=== PATIENT | female | born 1985 | race Caucasian/White ===

== ENCOUNTER → 2019-06-02 | Outpatient (CLI) | payer OTHER ==
--- NOTE | 2019-06-02 17:01 | REP ---
Obstetric ultrasound for anatomy: There is a single intrauterine gestation in a vertex presentation. There is movement and cardiac activity. The heart rate is 149 beats per minute. The placenta is posterior without previa or abruptio. The placenta is grade zero. The amniotic fluid volume subjectively is normal. The cervix measures through 0.5 cm length. Gestational age by today's ultrasound is 19 weeks 5 days/JENA 10/22/2019. Gestational age by LMP is 19 weeks 5 days/JENA 10/22/2019. weight is 288 grams/0 pounds, 10 ounces. This is the 39th percentile for 19 weeks 5 days. The following anatomic structures are identified and are unremarkable: Cranium, choroid plexus, cavum septum pellucidum, cerebellum, stomach, cord insertion, three-vessel cord, kidneys, bladder, spine and upper lower extremities. Suboptimally demonstrated because of position are the facial features, lungs, four-chamber heart, cardiac right and left ventricular outflow tracts and diaphragm. A followup study dedicated to these structures might be considered. Electronically Signed by Farhan Kirk MD 06/02/2019 04:53 P
== END ==
LOC: M RAD 10:10
PROVIDERS: ATTEND Specialist
DX: Z34.82 Encounter for supervision of other normal pregnancy, second trimester (principal)

== ENCOUNTER → 2019-06-09 | Outpatient (CLI) | payer OTHER | LOC: M SMT 13:12 | PROVIDERS: ATTEND Specialist | DX: Z82.69 Family history of other diseases of the musculoskeletal system and connective tissue (principal) ==

== ENCOUNTER → 2019-06-27 | Outpatient (CLI) | payer OTHER ==
--- NOTE | 2019-06-27 17:51 | REP ---
Clinical: Anatomical evaluation. Comparison: 06/02/2019 . Findings: Examination demonstrates a single live intrauterine in the cephalic presentation. motion is identified by technologist. Placenta is noted posterior and grade zero without evidence for placenta previa or abruption. Amniotic fluid volume is normal. Cervix measures 3.2 cm in length and appears closed. No evidence for nuchal cord. Gestational age by LMP 23 weeks 2 days with JENA 10/22/2019 . Gestational age by current measurements 23 weeks 3 days with JENA 10/21/2019 . FHR equals 155 beats per minute. Estimated weight 564 grams ( 39 percentile). Anatomical assessment demonstrates normal structures including facial features, lungs, four-chamber heart/ventricular outflow tracts, diaphragm. Impression: Single live intrauterine in cephalic presentation demonstrating appropriate interval growth. In conjunction with prior examination anatomical assessment is complete and normal. No gross abnormalities are identified. Electronically Signed by Tong Conway MD 06/27/2019 05:44 P
== END ==
LOC: M RAD 12:59
PROVIDERS: ATTEND Advanced Practice Midwife
DX: Z34.02 Encounter for supervision of normal first pregnancy, second trimester (principal); Z36.89 Encounter for other specified antenatal screening; Z3A.23 23 weeks gestation of pregnancy

== ENCOUNTER → 2019-07-19 | Outpatient (CLI) | payer OTHER ==
[2019-07-19 14:31] LABS: HEMATOCRIT 36.8 % (36.0-47.0); HEMOGLOBIN 11.8 g/dl (12.0-15.5); MEAN CORPUSCULAR HEMOGLOBIN 33.6 pg (27.0-33.0); MEAN CORPUSCULAR HGB CONC 32.1 g/dl (32.0-36.5); MEAN CORPUSCULAR VOLUME 104.8 fl (80.0-96.0); PLATELET COUNT, AUTOMATED 161 10^3/uL (150-450); RED BLOOD COUNT 3.51 10^6/uL (4.00-5.40)
== END ==
LOC: M SMT 08:05
PROVIDERS: ATTEND Advanced Practice Midwife
DX: Z34.02 Encounter for supervision of normal first pregnancy, second trimester (principal); Z3A.00 Weeks of gestation of pregnancy not specified

== ENCOUNTER → 2019-09-20 | Outpatient (REF) | payer OTHER | LOC: M SFHCWAGY 13:18 | PROVIDERS: ATTEND Specialist | DX: Z36.85 Encounter for antenatal screening for Streptococcus B (principal) ==

== ENCOUNTER 2019-10-08 13:53 | Inpatient (IN) | payer OTHER ==
[~2019-10-08] VITALS: Ht 162.6 cm; Wt 63.7 kg
[2019-10-08] MEDS ORDERED: PENICILLIN G POTASSIUM IV 5 MU in D5W MINI-BAG PLUS 100 ML IV STA (14:38)
[2019-10-08] MEDS ORDERED: PRENTAB9 PO (15:00)
[2019-10-08] MEDS ORDERED: VALA500T5 PO (15:00)
[2019-10-08 15:18] LABS: HEMATOCRIT 40.1 % (36.0-47.0); HEMOGLOBIN 13.4 g/dl (12.0-15.5); MEAN CORPUSCULAR HEMOGLOBIN 32.8 pg (27.0-33.0); MEAN CORPUSCULAR HGB CONC 33.4 g/dl (32.0-36.5); MEAN CORPUSCULAR VOLUME 98.3 fl (80.0-96.0); PLATELET COUNT, AUTOMATED 126 10^3/uL (150-450); RED BLOOD COUNT 4.08 10^6/uL (4.00-5.40); WHITE BLOOD COUNT 8.9 10^3/uL (4.0-10.0)
--- NOTE | 2019-10-08 16:47 | HPE ---
DATE OF ADMISSION: 10/08/2019 34-year-old, 1, para 0 female at 38 and 0/7 weeks gestational by 7-week ultrasound, estimated date of confinement (EDC) of 10/22/2019, presents with loss of fluid from vagina at 10:00 a.m. on the day of admission. She continued to leak fluid. Contractions increased spontaneously in intensity. She had a small amount of vaginal bleeding. COURSE: The patient initiated care in [place] and transferred to [facility] [place]Note 2] part way through the . She had no complications. MEDICAL HISTORY: 1. Resection of pelvic schwannoma. ALLERGIES: None. SURGICAL HISTORY: 1. Resection of pelvic schwannoma in 2006, 2016. SOCIAL HISTORY: The patient is . Her is a physician at [employer], they live in [place]. She denies cigarettes, alcohol or drug use. FAMILY HISTORY: Noncontributory. PHYSICAL EXAMINATION: VITAL SIGNS: Blood pressure 134/74, pulse 84, afebrile. Appears mildly uncomfortable. HEAD/NECK EXAM: Normal. LUNGS: Clear. HEART: Regular rate and rhythm. ABDOMEN: Nontender, gravid. heart tones category 1. Contractions every 2 to 3 minutes. Moderate. Sterile vaginal examination: Grossly ruptured of clear fluid, 4 to 5 cm, 100%, -1, mid position, soft, vertex. EXTREMITIES: Nontender. LABORATORIES: Blood type A positive, Group B streptococcus (GBS) positive. ASSESSMENT: 1. 34-year-old, 1 at 38 and 0/7 weeks gestation, presents with ruptured membranes and in active labor. PLAN: The patient is admitted on 10/08/2019. Penicillin for Group B streptococcus (GBS) prophylaxis.
[2019-10-08] MEDS ORDERED: PENICILLIN G POTASSIUM IV 2.5 MU in IV 1 EA IV SCH (19:00)
[2019-10-08 19:11] VITALS: BP 123/67
[2019-10-08] MEDS ORDERED: ACETAMINOPHEN TAB 650MG DOSE (2X325MG) PO PRN (19:15)
[2019-10-08] MEDS ORDERED: METHYLERGONOVINE MALEATE 0.2 MG TAB PO PRN (19:15)
[2019-10-08] MEDS ORDERED: DIBUCAINE 1% OINTMENT 30GM TOP PRN (19:15)
[2019-10-08] MEDS ORDERED: IBUPROFEN 800 MG TAB PO PRN (19:15)
[2019-10-08] MEDS ORDERED: ONDANSETRON 4MG/2ML VIAL (J2405) IV PRN (19:15)
[2019-10-08] MEDS ORDERED: ACETAMINOPHEN 500 MG TAB PO PRN (19:15)
[2019-10-08] MEDS ORDERED: IBUPROFEN 600 MG TAB PO PRN (19:15)
[2019-10-08] MEDS ORDERED: DOCUSATE SODIUM 100 MG CAP PO PRN (19:15)
[2019-10-08 19:25] VITALS: BP 115/68
[2019-10-08 19:47] VITALS: BP 117/64
[2019-10-08] MEDS ORDERED: RHOGAM 300 MCG (1500 IU) INJ (J2790) IM SCH (20:00)
[2019-10-08] MEDS ORDERED: MEASLES,MUMPS,RUBELLA VACCINE INJ (MMR-II) (90707) SC SCH (20:00)
[2019-10-08 21:20] VITALS: BP 114/67
[2019-10-09 05:34] VITALS: BP 128/76
[2019-10-09] MEDS: PRENATAL VITAMINS CHEWABLE TABLET PO SCH (09:00)
--- NOTE | 2019-10-09 15:07 | DN ---
DATE: 10/08/2019 PREDELIVERY DIAGNOSIS: 38 weeks active labor. POSTDELIVERY DIAGNOSIS: Delivered. PROCEDURE: Spontaneous vaginal delivery. SOCIAL SERVICE LIAISON: Dr. Thomas Collins. ANESTHESIA: None. ESTIMATED BLOOD LOSS: 300 mL. FINDINGS: A 6 pound 7 ounce female with scores of 9 and 9. DELIVERY SUMMARY: After approximately 30 minute second stage, patient had spontaneous delivery of a 6 pound 7 ounce female with scores of 9 and 9 with no delivery anesthesia. There was no nuchal cord. The shoulders delivered with ease. The infant was handed to the mother and cried immediately. The cord was doubly clamped and cut after about five minutes. The placenta delivered spontaneously and appeared to be intact. There were no vaginal lacerations present. Sponge counts were correct.
[2019-10-09 17:54] VITALS: BP 109/53
[2019-10-10 05:52] VITALS: BP 114/65
[2019-10-10] MEDS ORDERED: ACET-683 PO (06:26)
[2019-10-10] MEDS ORDERED: IBUP80TA PO (06:26)
[2019-10-10] MEDS: PRENATAL VITAMINS CHEWABLE TABLET PO SCH (09:46)
--- NOTE | 2019-10-13 18:03 | DSES ---
DATE OF ADMISSION: 10/08/2019 DATE OF DISCHARGE: 10/10/2019 HISTORY: A 34-year-old (G) 1, para (P) 0 female at 38-0/7 weeks gestation who presents with leakage of fluid from vagina at 10:00 a.m. on the day of admission. Upon presentation to the hospital, she was found to be in active labor with ruptured membranes. HOSPITAL COURSE: The patient was admitted on 10/08/2019. She made adequate progress in labor with no need for augmentation of any kind. On 10/08/2019, she had spontaneous delivery of a 6-pound, 7 ounce female . She had no complications. Her course was unremarkable. She had adequate return of bladder and bowel function. She was deemed stable for discharge on day number two. ADMISSION DIAGNOSIS: , term labor. DISCHARGE DIAGNOSIS: Delivered. PROCEDURE: Spontaneous vaginal delivery. DISPOSITION: The patient will followup with Dr. Collins in six weeks. Instructions were reviewed.
== END 2019-10-10 11:15 | disposition home or self-care (01) | DRG 807 ==
LOC: M LDO 13:53 → M LDI 14:28 → M OBS 20:45
PROVIDERS: ADMIT Specialist; ATTEND Specialist
PROC: 10E0XZZ Delivery of Products of Conception, External Approach (ICD-10-PCS; principal; 2019-10-08)
DX: O99.824 Streptococcus B carrier state complicating childbirth (principal); Z37.0 Single live birth; Z3A.38 38 weeks gestation of pregnancy

== ENCOUNTER → 2019-12-21 | Outpatient (REF) | payer OTHER ==
[~2019-12-21] MED LIST: ACET-683 PO; IBUP80TA PO; PRENTAB9 PO; VALA500T5 PO
== END ==
LOC: M LAB REF 18:12
PROVIDERS: ATTEND Dermatology
DX: D22.62 Melanocytic nevi of left upper limb, including shoulder (principal); D22.5 Melanocytic nevi of trunk; L81.9 Disorder of pigmentation, unspecified

== ENCOUNTER → 2020-02-28 | Outpatient (REF) | payer OTHER | LOC: M SFHCWAGY 17:29 | PROVIDERS: ATTEND Specialist | DX: Z12.4 Encounter for screening for malignant neoplasm of cervix (principal); R87.610 Atypical squamous cells of undetermined significance on cytologic smear of cervix (ASC-US) | CPT/HCPCS: 87624; G0123 ==

== ENCOUNTER → 2020-12-03 | Outpatient (REF) | payer OTHER ==
[2020-12-03 19:00] LABS: HEMATOCRIT 37.1 % (36.0-47.0); HEMOGLOBIN 12.9 g/dl (12.0-15.5); MEAN CORPUSCULAR HEMOGLOBIN 33.7 pg (27.0-33.0); MEAN CORPUSCULAR HGB CONC 34.8 g/dl (32.0-36.5); MEAN CORPUSCULAR VOLUME 96.9 fl (80.0-96.0); PLATELET COUNT, AUTOMATED 184 10^3/uL (150-450); RED BLOOD COUNT 3.83 10^6/uL (4.00-5.40); WHITE BLOOD COUNT 8.6 10^3/uL (4.0-10.0)
[2020-12-03 19:44] LABS: HEPATITIS C VIRUS ABY INDEX < 0.0 INDEX (<0.8); HIV 1&2 SCREEN CENTAUR NEGATIVE (NEGATIVE)
[2020-12-03 20:15] LABS: CHLAMYDIA DNA AMPLIFICATION NEGATIVE (NEGATIVE); GC DNA AMPLIFICATION NEGATIVE (NEGATIVE)
== END ==
LOC: M PLALAB 14:16
PROVIDERS: ATTEND Specialist
DX: Z36.89 Encounter for other specified antenatal screening (principal); Z34.91 Encounter for supervision of normal pregnancy, unspecified, first trimester

== ENCOUNTER → 2020-12-13 | Outpatient (CLI) | payer OTHER | LOC: M PLALAB 08:56 | PROVIDERS: ATTEND Specialist | DX: Z34.81 Encounter for supervision of other normal pregnancy, first trimester (principal) ==

== ENCOUNTER → 2021-02-11 | Outpatient (CLI) | payer OTHER ==
--- NOTE | 2021-02-11 22:50 | REP ---
INDICATION: ANATOMY COMPARISON: None. TECHNIQUE: Transabdominal obstetrical ultrasound with color Doppler evaluation. FINDINGS: Examination demonstrates a single live intrauterine in variable presentation. motion is identified by technologist. Placenta is noted posterior and grade 1 without evidence for placenta previa or abruption. Amniotic fluid volume is normal. Cervix measures 4.6 cm in length and appears closed.. Selected gestational age: 18 weeks 5 days with JENA 07/10/2021. Gestational age by current measurements 17 weeks 6 days with JENA 07/16/2021. FHR equals 143 beats per minute. Estimated weight 205 grams (less than 3rdpercentile). Anatomical assessment demonstrates normal structures including cranium, choroid plexus, cavum, cerebellum/posterior fossa, facial features, lungs, four-chamber heart/ventricular outflow tracts, diaphragm, stomach, cord insertion/three-vessel cord, kidneys/bladder, spine, and extremities. IMPRESSION: Single live intrauterine in variable presentation. Anatomical assessment is complete and normal. Estimated weight less than 3rd percentile. <Electronically signed by Tong Conway > 02/11/21 2143
== END ==
LOC: M WHC 10:59
PROVIDERS: ATTEND Advanced Practice Midwife
DX: O09.512 Supervision of elderly primigravida, second trimester (principal); Z3A.18 18 weeks gestation of pregnancy

== ENCOUNTER → 2021-02-27 | Outpatient (CLI) | payer OTHER ==
--- NOTE | 2021-02-27 14:19 | REP ---
INDICATION: IUGR,GROWTH. COMPARISON: None. TECHNIQUE: Transabdominal scanning to assess growth FINDINGS: Multiple ultrasonographic images of the gravid uterus shows a single living intrauterine gestation in the breech presentation. Doppler interrogation of the heart shows a heart rate of 147 beats per minute. The placenta is posterior not low lying. The cervix measures 3.3 cm in length and is closed. The subjective amniotic fluid volume is within normal limits. BPD: 4.7 cm 20 weeks 2 days HC: 17.6 cm 20 weeks 1 day AC: 15.5 cm 20 weeks 5 days FL: 3.4 cm 20 weeks 5 days The estimated weight is 367 g which is at the 27th percentile for a 21 week 0 day gestational age. IMPRESSION: Single living intrauterine gestation as described above with an estimated gestational age of 20 weeks 4 days via composite criteria and an estimated date of delivery of 07/13/2021 by today's exam. <Electronically signed by Yared Lockwood > 02/27/21 [id number]
== END ==
LOC: M WHC 13:37
PROVIDERS: ATTEND Advanced Practice Midwife
DX: O36.5920 Maternal care for other known or suspected poor fetal growth, second trimester, not applicable or unspecified (principal); O32.1XX0 Maternal care for breech presentation, not applicable or unspecified; Z3A.20 20 weeks gestation of pregnancy

== ENCOUNTER → 2021-04-30 | Outpatient (CLI) | payer OTHER ==
[2021-04-30 13:32] LABS: HEMATOCRIT 35.9 % (36.0-47.0); HEMOGLOBIN 12.3 g/dl (12.0-15.5); MEAN CORPUSCULAR HEMOGLOBIN 33.9 pg (27.0-33.0); MEAN CORPUSCULAR HGB CONC 34.3 g/dl (32.0-36.5); MEAN CORPUSCULAR VOLUME 98.9 fl (80.0-96.0); PLATELET COUNT, AUTOMATED 162 10^3/uL (150-450); RED BLOOD COUNT 3.63 10^6/uL (4.00-5.40); WHITE BLOOD COUNT 10.3 10^3/uL (4.0-10.0)
== END ==
LOC: M PLALAB 08:34
PROVIDERS: ATTEND Specialist
DX: Z34.82 Encounter for supervision of other normal pregnancy, second trimester (principal)
CPT/HCPCS: 36415; 82950; 85027; 86850; 86900; 86901; G0463

== ENCOUNTER → 2021-05-14 | Outpatient (CLI) | payer OTHER | LOC: M WHC 09:50 | PROVIDERS: ATTEND Advanced Practice Midwife | DX: O26.849 Uterine size-date discrepancy, unspecified trimester (principal); Z53.9 Procedure and treatment not carried out, unspecified reason ==

== ENCOUNTER → 2021-05-21 | Outpatient (CLI) | payer OTHER ==
--- NOTE | 2021-05-22 05:52 | REP ---
INDICATION: IUGR, GROWTH COMPARISON: 02/27/2021 TECHNIQUE: Transabdominal obstetrical ultrasound with color Doppler evaluation. FINDINGS: Examination demonstrates a single live intrauterine in cephalic presentation. motion is identified by technologist. Placenta is noted posterior and grade 2 without evidence for placenta previa or abruption. Amniotic fluid volume is normal. Selected gestational age: 32 weeks 6 days with JENA 07/10/2021. Gestational age by current measurements 32 weeks 1 day with JENA 07/15/2021. FHR equals 136 beats per minute. MACHELLE: 15.8 cm Umbilical artery SD ratio: 3.49 (1.80-3.78) Estimated weight 1843 grams (15thpercentile). IMPRESSION: Single live intrauterine in cephalic presentation demonstrating appropriate estimated weight and amniotic fluid index <Electronically signed by Tong Conway > 05/22/21 0549
== END ==
LOC: M WHC 13:28
PROVIDERS: ATTEND Advanced Practice Midwife
DX: O36.5930 Maternal care for other known or suspected poor fetal growth, third trimester, not applicable or unspecified (principal); Z3A.32 32 weeks gestation of pregnancy

== ENCOUNTER → 2021-06-12 | Outpatient (REF) | payer OTHER | LOC: M SFHCWAGY 13:10 | PROVIDERS: ATTEND Obstetrics & Gynecology | DX: Z34.03 Encounter for supervision of normal first pregnancy, third trimester (principal) ==

== ENCOUNTER → 2021-06-18 | Outpatient (CLI) | payer OTHER ==
--- NOTE | 2021-06-18 17:47 | REP ---
INDICATION: GROWTH IUGR COMPARISON: 05/21/2021 TECHNIQUE: Transabdominal obstetrical ultrasound with color Doppler evaluation. FINDINGS: Examination demonstrates a single live intrauterine in cephalic presentation. motion is identified by technologist. Placenta is noted posterior and grade 2 without evidence for placenta previa or abruption. Amniotic fluid volume is normal. Cervix appears closed. Selected gestational age: 36 weeks 6 days with JENA 07/10/2021. Gestational age by current measurements 35 weeks 4 days with JENA 07/19/2021. FHR equals 147 beats per minute. BPD: 8.3 cm at 33 weeks 4 days HC: 31.9 cm at 35 weeks 6 days AC: 32.2 cm at 36 weeks 1 day FL: 7.1 cm at 36 weeks 4 days HL: 6.2 cm at 36 weeks 1 day HC/AC: 0.99 Estimated weight 2793 grams (30thpercentile). MACHELLE: 11.9 cm Umbilical artery SD ratio: 2.62 IMPRESSION: Single live advanced gestation in cephalic presentation demonstrating appropriate interval growth. <Electronically signed by Tong Conway > 06/18/21 [id number]
== END ==
LOC: M WHC 15:18
PROVIDERS: ATTEND Advanced Practice Midwife
DX: O36.5930 Maternal care for other known or suspected poor fetal growth, third trimester, not applicable or unspecified (principal); Z3A.36 36 weeks gestation of pregnancy

== ENCOUNTER 2021-07-01 22:23 | Inpatient (IN) | payer OTHER ==
[~2021-07-01] VITALS: Ht 162.6 cm; Wt 65.0 kg
[2021-07-01] MEDS ORDERED: OXYTOCIN INJ 10 UNITS/ML VIAL (J2590) As Ordered ONE (22:26)
--- OUTSIDE RECORDS SUMMARY | 2021-07-01 22:26 | CCD ---
Author Author [facility] Organization [facility] Address Unknown Phone Unavailable Care Team Providers Care Channel Sales Director Name Role Phone Aime Herring Unavailable PROBLEMS Type Condition ICD9-CM Code [id number] Code Onset Dates Condition S tatus W/U Status Risk SNOMED Code Notes Problem Melanocytic nevi of left ear D22.22 Active confirme d 164565751 Problem Multiple benign nevi of neck D22.4 Active confirme d 07707165 Problem Melanocytic nevi of right ear D22.21 Active confirm ed 732375725 Problem Melanocytic nevi of face D22.30 Active confirmed 649139166 Problem Scar L90.5 Active confirmed 887349864 Problem Melanocytic nevi of trunk D22.5 Active confirmed 617583473 Problem History of nonmelanoma skin cancer Z85.828 Activ e confirmed 654693964 Problem Supervision of other normal Z34.80 Ac tive confirm 846346745 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 76545 01 Problem Melanocytic nevi of left lower limb, including hip D22.72 Active confirmed 991327410842873 Problem Melanocytic nevi of right lower limb, including hip D22.71 Active confirmed 608208331 Problem Melanocytic nevi of left upper limb, including shoulder D22.62 Active confirmed [id number] Problem Melanocytic nevi of right upper limb, including shoulder D22.61 Active confirmed [id number] ALLERGIES No Known Allergies ENCOUNTERS from 1984 to 2021-05-01 Encounter Location Date Provider Diagnosis [facility] [address] [place] [address] [place] [address] Apr, Aime Nima Advanced maternal ag e in multigravida O09.529 and 29 weeks gestation of Z3A.29 IMMUNIZATIONS Vaccine Route Administration Date Status TDAP 0.5mL (Boostrix) IM Intramuscular Sep 09, 2019 Administe red SOCIAL HISTORY Tobacco Use: Social History Observation Description Date Details (start date - stop date) Never Smoker Sex Assigned At : Social History Observation Description Sex Assigned At Unknown Education: Question Answer Notes Level of Education: Professional Schools/Masters/PhD Language: Question Answer Notes Languages spoken: Azeri Domestic Violence: Question Answer Notes Status: No history of abuse Tobacco Use: Question Answer Notes Are you a: never smoker REASON FOR REFERRAL No Information VITAL SIGNS Weight 139 lbs Apr, Weight-kg 63.05 kg Apr, Height 64 in Apr, BMI 23.859 kg/m2 Apr, Blood pressure systolic 102 mm Hg Apr, Blood pressure diastolic 60 mm Hg Apr, MEDICATIONS Medication SIG (Take, Route, Frequency, Duration) Notes Start Da te End Date Status Magnesium 300 MG 1 capsule with a meal Orally Once a day for 30 day(s ) Active Vitamin 27-0.8 MG 1 tablet Orally Once a day Active Valtrex 500 MG 1 tablet Orally Once a day Active PROCEDURES No Information RESULTS No Results REASON FOR VISIT 4WK PN MEDICAL (GENERAL) HISTORY Type Description Date Medical History History of Schwannoma tumor in pelvic ar ea Surgical History Tumor Removed 2006, 2016 Hospitalization History tumor removed x 2 Hospitalization History childbirth Goals Section No Information Health Concerns No Information MEDICAL EQUIPMENT No Information MENTAL STATUS No Information FUNCTIONAL STATUS No Information ASSESSMENTS Encounter Date Diagnosis Assessment Notes Treatment Notes Treatm ent Clinical Notes Apr, Advanced maternal age in multigravida (ICD-10 - O09.529) Apr, 29 weeks gestation of (ICD-10 - Z3A.29 ) PLAN OF TREATMENT Next Appt Details 2 Weeks Reason: Provider Name:Aime Herring, 2021-05-14 0 9:00:00 AM, [address] [place] [address], , [place], [address], Provider Name:Xochilt Garrett, 2021-05-09 2 09:00:00 AM, [address] [place] [address], , [place], [address], Provider Name:Rachel Summers, 2021-06-12 0 9:00:00 AM, [address] [facility], , [place], [address], Insurance Providers Payer Name Payer Address Payer Phone Insured Name Patient Relati onship to Insured Coverage Start Date Coverage End Date [facility] [address] [place] [id number] SAMIA HERNANDEZ 'S ADMINSTRATION [place] [address] [address] [facility] [address] [address]
--- OUTSIDE RECORDS SUMMARY | 2021-07-01 22:26 | CCD ---
Author Author [facility] [facility] Organization [facility] Address Unknown Phone Unavailable Care Team Providers Care Administrative Assistant Coordinator Name Role Phone NimaAime Unavailable PROBLEMS Type Condition ICD9-CM Code IQV80-IP Code Onset Dates Condition S tatus W/U Status Risk SNOMED Code Notes Problem Melanocytic nevi of left ear D22.22 Active confirme d 551986202 Problem Multiple benign nevi of neck D22.4 Active confirme d 98020216 Problem Melanocytic nevi of right ear D22.21 Active confirm ed 003624119 Problem Melanocytic nevi of face D22.30 Active confirmed 661002113 Problem Scar L90.5 Active confirmed 966472865 Problem Melanocytic nevi of trunk D22.5 Active confirmed 407810703 Problem History of nonmelanoma skin cancer Z85.828 Activ e confirmed 291057517 Problem Supervision of other normal Z34.80 Ac tive confirm 603757334 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 64647 01 Problem Melanocytic nevi of left lower limb, including hip D22.72 Active confirmed 850191403394713 Problem Melanocytic nevi of right lower limb, including hip D22.71 Active confirmed 440066012 Problem Melanocytic nevi of left upper limb, including shoulder D22.62 Active confirmed 006258368310485 Problem Melanocytic nevi of right upper limb, including shoulder D22.61 Active confirmed 174998255 ALLERGIES No Known Allergies ENCOUNTERS from 1984 to 2021-05-15 Encounter Location Date Provider Diagnosis [facility] [phone] [place] [address] May, Aime Herring Uterine size-date di screpancy in third trimester O26.843 ; Elderly multigravida in third trimester O09.523 and 31 weeks gestation of Z3A.31 IMMUNIZATIONS Vaccine Route Administration Date Status TDAP 0.5mL (Boostrix) IM Intramuscular Sep 09, 2019 Administe mae SOCIAL HISTORY Tobacco Use: Social History Observation Description Date Details (start date - stop date) Never Smoker Sex Assigned At : Social History Observation Description Sex Assigned At Unknown Education: Question Answer Notes Level of Education: Professional Schools/Masters/PhD Language: Question Answer Notes Languages spoken: Citizen Of [place] Domestic Violence: Question Answer Notes Status: No history of abuse Tobacco Use: Question Answer Notes Are you a: never smoker REASON FOR REFERRAL No Information VITAL SIGNS Weight 139.4 lbs May, Weight-kg 63.23 kg May, Height 64 in May, BMI 23.928 kg/m2 May, Blood pressure systolic 108 mm Hg May, Blood pressure diastolic 66 mm Hg May, MEDICATIONS Medication SIG (Take, Route, Frequency, Duration) Notes Start Da te End Date Status Magnesium 300 MG 1 capsule with a meal Orally Once a day for 30 day(s ) Active Valtrex 500 MG 1 tablet Orally Once a day Active Vitamin 27-0.8 MG 1 tablet Orally Once a day Active PROCEDURES No Information RESULTS No Results REASON FOR VISIT 2 wk pn MEDICAL (GENERAL) HISTORY Type Description Date Medical History History of Schwannoma tumor in pelvic ar ea Surgical History Tumor Removed 2006, 2016 Hospitalization History tumor removed x 2 Hospitalization History childbirth Goals Section No Information Health Concerns No Information MEDICAL EQUIPMENT No Information MENTAL STATUS No Information FUNCTIONAL STATUS No Information ASSESSMENTS Encounter Date Diagnosis Assessment Notes Treatment Notes Treatm ent Clinical Notes May, Uterine size-date discrepanc y in third trimester (ICD-10 - O26.843) May, Elderly multigravida in third trimester (ICD-10 - O09.523) May, 31 weeks gestation of (ICD-10 - Z3A.31 ) PLAN OF TREATMENT Treatment Notes Test Name Order Date [facility] OBS FOLLOW UP OR REPEAT 2021-05-14 Next Appt Details 2 Weeks Reason: Provider Name:Xochilt Garrett, 2021-05-09 2 09:00:00 AM, [address] [phone], [place], [address], Provider Name:Rachel Summers, 2021-06-12 0 9:00:00 AM, [address] [facility], , [place], [address], Insurance Providers Payer Name Payer Address Payer Phone Insured Name Patient Relati onship to Insured Coverage Start Date Coverage End Date [facility] [address] [facility] [address] SAMIA HERNA[facility]DEZ 'S ADMINSTRATION ([place] [address] [address] [facility] [address] [address] self
--- OUTSIDE RECORDS SUMMARY | 2021-07-01 22:26 | CCD ---
Author Author [facility] [facility] Organization [facility] [facility] Address Unknown Phone Unavailable Care Team Providers Care Electric Bath Attendant Name Role Phone Aime Herring Unavailable PROBLEMS Type Condition ICD9-CM Code [id number] Code Onset Dates Condition S tatus W/U Status Risk SNOMED Code Notes Problem Melanocytic nevi of left ear D22.22 Active confirme d 500048073 Problem Multiple benign nevi of neck D22.4 Active confirme d 34259177 Problem Melanocytic nevi of right ear D22.21 Active confirm ed 999884172 Problem Melanocytic nevi of face D22.30 Active confirmed 813288271 Problem Scar L90.5 Active confirmed 851887321 Problem Melanocytic nevi of trunk D22.5 Active confirmed 748467866 Problem History of nonmelanoma skin cancer Z85.828 Activ e confirmed 832446773 Problem Supervision of other normal Z34.80 Ac tive confirm 118220683 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 26634 01 Problem Melanocytic nevi of left lower limb, including hip D22.72 Active confirmed 821364799562519 Problem Melanocytic nevi of right lower limb, including hip D22.71 Active confirmed 649708203 Problem Melanocytic nevi of left upper limb, including shoulder D22.62 Active confirmed 131089896464116 Problem Melanocytic nevi of right upper limb, including shoulder D22.61 Active confirmed 149749881 ALLERGIES No Known Allergies ENCOUNTERS from 1984 to 2021-06-21 Encounter Location Date Provider Diagnosis [facility] [address] [place] [address] [place] [address] Jun, Aime Herring Advanced maternal ag e in multigravida O09.529 IMMUNIZATIONS Vaccine Route Administration Date Status TDAP 0.5mL Boostrix IM Intramuscular May 29, 2021 Administere d TDAP 0.5mL (Boostrix) IM Intramuscular Sep 09, 2019 Administe red Influenza 6mo & up Fluzone IM Intramuscular Jun 21, 2021 Admi nistered SOCIAL HISTORY Tobacco Use: Social History Observation Description Date Details (start date - stop date) Never Smoker Sex Assigned At : Social History Observation Description Sex Assigned At Unknown Education: Question Answer Notes Level of Education: Professional Schools/Masters/PhD Language: Question Answer Notes Languages spoken: Malawian Domestic Violence: Question Answer Notes Status: No history of abuse Alcohol Screening: Question Answer Notes Did you have a drink containing alcohol in the past year? No Points 0 Interpretation Negative Tobacco Use: Question Answer Notes Are you a: never smoker REASON FOR REFERRAL No Information VITAL SIGNS Weight 142.0 lbs Jun, Weight-kg 64.41 kg Jun, Height 64 in Jun, BMI 24.374 kg/m2 Jun, Blood pressure systolic 112 mm Hg Jun, Blood pressure diastolic 64 mm Hg Jun, MEDICATIONS Medication SIG (Take, Route, Frequency, Duration) Notes Start Da te End Date Status Vitamin 27-0.8 MG 1 tablet Orally Once a day Active Valtrex 500 MG 1 tablet Orally Once a day Active Valtrex 500 MG 1 tablet Orally BID for 30 days Jun, Active Magnesium 300 MG 1 capsule with a meal Orally Once a day for 30 day(s ) Active PROCEDURES from 1984 to 2021-06-21 Procedure Date Ordered Result Body Site Imm: Fluzone 6mo & older 0.5mL IM Influenza 2021-06-21 N/A RESULTS No Results REASON FOR VISIT 1 WK PN MEDICAL (GENERAL) HISTORY Type Description Date Medical History History of Schwannoma tumor in pelvic ar ea Surgical History Tumor Removed 2006, 2015 Hospitalization History tumor removed x 2 Hospitalization History childbirth Goals Section No Information Health Concerns No Information MEDICAL EQUIPMENT No Information MENTAL STATUS No Information FUNCTIONAL STATUS No Information ASSESSMENTS Encounter Date Diagnosis Assessment Notes Treatment Notes Treatm ent Clinical Notes Jun, Advanced maternal age in multigravida (ICD-10 - O09.529) PLAN OF TREATMENT Medication Medication Name Sig Start Date Stop Date Valtrex 500 MG 1 tablet Orally BID for 30 days Jun, Next Appt Details 1 Week Reason: Provider Name:Thomas Collins, 2021-06-26 02:45:00 PM, [address] [place] [address], , [place], [address], Provider Name:Thomas Collins, 2021-07-03 09:15:00 AM, [address] [place] [address], , [place], [address], Insurance Providers Payer Name Payer Address Payer Phone Insured Name Patient Relati onship to Insured Coverage Start Date Coverage End Date [facility] [address] [place] [id number] SAMIA HERNANDEZ 'S ADMINSTRATION ([place]) [place] [address] [address] [facility] [address] [address] self
--- OUTSIDE RECORDS SUMMARY | 2021-07-01 22:26 | CCD ---
Author Author [facility] Organization [facility] Address Unknown Phone Unavailable Support Name Relationship Address Phone SAMIA HERNANDEZ Next Of Kin [address] [place], [place] [id number] UE Next Of Kin Unknown Unavailable SAMIA HERNANDEZ ECON [address] [place] [address] Unavailable Re-disclosure Warning The records that you are about to access may contain information from federally-assisted alcohol or drug abuse programs. If such information is present, then the following federally mandated warning applies: This information has been disclosed to you from records protected by federal confidentiality rules (42 CFR part 2). The federal rules prohibit you from making any further disclosure of this information unless further disclosure is expressly permitted by the written consent of the person to whom it pertains or as otherwise permitted by 42 CFR part 2. A general authorization for the release of medical or other information is NOT sufficient for this purpose. The Federal rules restrict any use of the information to criminally investigate or prosecute any alcohol or drug abuse patient.The records that you are about to access may contain highly sensitive health information, the redisclosure of which is protected by Article 27-F of the [facility] Public Health law. If you continue you may have access to information: Regarding HIV / AIDS; Provided by facilities licensed or operated by the [facility] Office of Mental Health; or Provided by the [facility] Office for People With Developmental Disabilities. If such information is present, then the following [facility] mandated warning applies: This information has been disclosed to you from confidential records which are protected by state law. State law prohibits you from making any further disclosure of this information without the specific written consent of the person to whom it pertains, or as otherwise permitted by law. Any unauthorized further disclosure in violation of state law may result in a fine or group home sentence or both. A general authorization for the release of medical or other information is NOT sufficient authorization for further disc losure. Encounters Encounter Providers Location Date Indications Data Source(s ) ( ESTOB) enter Est OB [address] [place] [address] 06/21/2021 12:00:00 AM EDT eCW1 ([facility]) ( ESTOB) [facility] [place] [address] [place] [address] 05/29/2021 12:00:00 AM EDT eCW1 ([facility]) (WC ESTOB) [facility] [place] [address] [place] [address] 05/14/2021 12:00:00 AM EDT eCW1 ([facility]) (WC ESTOB) [facility] [address] [place] [address] 04/30/2021 12:00:00 AM EDT eCW1 ([facility]) (WC ESTOB) [facility] [address] [place] [address] 03/28/2021 12:00:00 AM EDT eCW1 ([facility]) Unknown [address] [facility] [address] 02/27/2021 12:00:00 AM EDT eCW1 ([facility]) ( ESTOB) [facility] [address] [place] [address] 02/26/2021 12:00:00 AM EDT eCW1 ([facility]) ( ESTOB) [facility] [address] [place] [address] 01/30/2021 12:00:00 AM EDT eCW1 ([facility]) (WC ESTOB) [facility] [address] [place] [address] 12/28/2020 12:00:00 AM EDT eCW1 ([facility]) [place] [address] [facility] [place] [address] 12/25/2020 12:00:00 AM EDT eCW1 ([facility]) [place] [address] [facility] [place] [address] 12/04/2020 12:00:00 AM EDT eCW1 ([facility]) (WC ESTOB) WCenter Est OB [address] [place] [address] 12/03/2020 12:00:00 AM EDT eCW1 ([facility]) Out[place] [address] [facility] [address] 09/19/2020 12:00:00 AM EST eCW1 ([facility]) Immunizations Vaccine Date Status Description Data Source(s) New in 2011. IIV4 06/21/2021 03:57:00 PM EDT completed eCW1 ([facility]) Tdap 05/29/2021 09:35:00 AM EDT completed e CW1 ([facility]) Tdap 05/29/2021 09:35:00 AM EDT completed e CW1 ([facility]) COVID-19 VACCINE Pfizer 05/14/2021 12:00:00 AM EDT completed [place] Vaccine Series Complete: YESThis Data wa s Submitted to [facility]. COVID-19 VACCINE Pfizer 04/22/2021 12:00:00 AM EDT completed [place] Vaccine Series Complete: NOThis Data was Submitted to [facility]. Medications Medication Brand Name Start Date Product Form Dose Route Admi nistrative Instructions Pharmacy Instructions Status Indications Reaction Description Data Source(s) valacyclovir 500 MG Oral Tablet [Valtrex] Valtrex 500 MG Sneha trex 500 MG 06/21/2021 12:00:00 AM EDT 1.0 {tablet} active Valtrex 500 MG eCW1 ([facility]) Cephalexin 500 MG Oral Capsule Cephalexin 500 MG 12/25/2020 12:00:0 0 AM EDT 1.0 {capsule} active Cephalexin 500 MG eCW1 ([facility]) Cephalexin 500 MG Oral Capsule Cephalexin 500 MG 12/25/2020 12:00:0 0 AM EDT 1.0 {capsule} active Cephalexin 500 MG eCW1 ([facility]) Insurance Providers Payer name Policy type / Coverage type Policy ID Covered republican ID Covered republican's relationship to ag Policy Ag Plan Information [facility] [id number] [facility] [id number] [facility] [id number] [facility] [id number] SP [id number] 74 'S ADMINISTRATION [id number] SP [id number] [facility] [facility] O [id number] S [id number] SELF PAY O UNAVAILABLE [id number] S UNAVAILA BLE 'S ADMINISTRATION [id number] SP [id number] [facility] [id number] Problems, Conditions, and Diagnoses Code Display Name Description Problem Type Effective Dates Data Source(s) Z34.80 care Supervision of other normal [place] marylu 11/28/2020 12:00:00 AM EDT eCW1 ([facility]) D22.61 104787245 Melanocytic nevi of right upper limb, including shoulder Problem 09/19/2020 12:00:00 AM EST eCW1 ([facility]) D22.62 [id number] Melanocytic nevi of left upper l imb, including shoulder Problem 09/19/2020 12:00:00 AM EST eCW1 ([facility]) D22.71 718893727 Melanocytic nevi of right lower limb, inc luding hip Problem 09/19/2020 12:00:00 AM EST eCW1 ([facility]) D22.72 [id number] Melanocytic nevi of left lower l imb, including hip Problem 09/19/2020 12:00:00 AM EST eCW1 ([facility]) D18.01 6997393 Baldwin angioma Problem 09/19/2020 12:00:00 A M EST eCW1 ([facility]) Z85.828 052012731 History of nonmelanoma skin cancer Proble m 09/19/2020 12:00:00 AM EST eCW1 ([facility]) D22.5 412265944 Melanocytic nevi of trunk Problem 09/19/2020 12:00:00 AM EST eCW1 ([facility]) L90.5 346485109 Scar Problem 09/19/2020 12:00:00 AM ES T eCW1 ([facility]) D22.30 382725296 Melanocytic nevi of face Problem 09/19/2020 12:00:00 AM EST eCW1 ([facility]) D22.21 596138445 Melanocytic nevi of right ear Problem 09/19/2020 12:00:00 AM EST eCW1 ([facility]) D22.4 07123842 Multiple benign nevi of neck Problem 021 12:00:00 AM EST eCW1 ([facility]) D22.22 936471882 Melanocytic nevi of left ear Problem 09/19/2020 12:00:00 AM EST eCW1 ([facility]) Surgeries/Procedures Procedure Description Date Indications Data Source(s) INFLUENZA VIRUS VACC SPLIT PRSRV FREE 3 YRS/> IM 06/21 12:00:00 AM EDT eCW1 ([facility]) TDAP VACCINE 7/> YR IM 05/29/2021 12:00:00 AM EDT eCW1 ([facility]) Results ID Date Data Source HBSAG 12/03/2020 12:00:00 AM EDT eCW1 ([facility]) Name Value Range Interpretation Code Description Data Peggy rce(s) Supporting Document(s) NEGATIVE NEGATIVE HBsAg eCW1 ([facility]) ID Date Data Source HEPATITIS C ANTIBODY INDEX 12/03/2020 12:00:00 AM EDT eCW1 ( [facility]) Name Value Range Interpretation Code Description Data Peggy rce(s) Supporting Document(s) < 0.0 <0.8 HEPATITIS C VIRUS CESAR IND EX eCW1 ([facility]) ID Date Data Source RUBELLA IMMUNE STATUS IgG 12/03/2020 12:00:00 AM EDT eCW1 ([facility]) Name Value Range Interpretation Code Description Data Peggy rce(s) Supporting Document(s) IMMUNE IMMUNE RUBELLA IgG QUALITATIVE eCW1 ( [facility]) ID Date Data Source SYPHILIS ANTIBODY (RPR SCREEN) 12/03/2020 12:00:00 AM EDT eC W1 ([facility]) Name Value Range Interpretation Code Description Data Peggy rce(s) Supporting Document(s) NONREACTIVE NONREACTIVE SYPHILIS eCW1 ([facility]) ID Date Data Source [id number] 12/03/2020 12:00:00 AM EDT eCW1 ([facility]) Name Value Range Interpretation Code Description Data Peggy rce(s) Supporting Document(s) HIV 1&2 ANTIBODY SCREEN eCW1 ( [facility]) ID Date Data Source CHLAMYDIA & GC DNA AMPLIFICAT 12/03/2020 12:00:00 AM EDT eCW 1 ([facility]) Name Value Range Interpretation Code Description Data Peggy rce(s) Supporting Document(s) Chlamydia trachomatis rRNA [Presence] in Unspecified specimen by Probe and target amplification method NEGATIVE NEGATIVE CHLAMYDIA DNA AMPLIFICATION eCW1 ([facility]) ID Date Data Source CBC - Complete Blood Count 12/03/2020 12:00:00 AM EDT eCW1 ( [facility]) Name Value Range Interpretation Code Description Data Peggy rce(s) Supporting Document(s) 3.83 4.00-5.40 RED BLOOD COUNT eCW1 ([facility]) 12.9 12.0-15.5 HEMOGLOBIN eCW1 ([facility]) 8.6 4.0-10.0 WHITE BLOOD COUNT eCW1 ([facility]) 33.7 27.0-33.0 MEAN CORPUSCULAR HEMOGLOB IN eCW1 ([facility]) 96.9 80.0-96.0 MEAN CORPUSCULAR VOLUME e CW1 ([facility]) 37.1 36.0-47.0 HEMATOCRIT eCW1 ([facility]) 34.8 32.0-36.5 MEAN CORPUSCULAR HGB CONC eCW1 ([facility]) 11.9 11.5-14.5 RED CELL DISTRIBUTION WID TH eCW1 ([facility]) 184 150-450 PLATELET COUNT, AUTOMATED eCW1 ([facility]) ID Date Data Source Type and Screen Prenatal1 12/03/2020 12:00:00 AM EDT eCW1 ([facility]) Name Value Range Interpretation Code Description Data Peggy rce(s) Supporting Document(s) NEGATIVE AB SCREEN PNP1 GEL (VIS) eCW1 ([facility]) Procedure Social History Code Duration Value Status Description Data Source(s ) Smoking 06/20/2021 12:00:00 AM EDT Never Smoker completed Never S moker eCW1 ([facility]) Smoking 06/11/2021 12:00:00 AM EDT Never Smoker completed Never S moker eCW1 ([facility]) Smoking 05/06/2021 12:00:00 AM EDT Never Smoker completed Never S moker eCW1 ([facility]) Smoking 04/30/2021 12:00:00 AM EDT Never Smoker completed Never S moker eCW1 ([facility]) Smoking 03/28/2021 12:00:00 AM EDT Never Smoker completed Never S moker eCW1 ([facility]) Smoking 02/21/2021 12:00:00 AM EDT Never Smoker completed Never S moker eCW1 ([facility]) Smoking 02/21/2021 12:00:00 AM EDT Never Smoker completed Never S moker eCW1 ([facility]) Smoking 02/21/2021 12:00:00 AM EDT Never Smoker completed Never S moker eCW1 ([facility]) Smoking 01/30/2021 12:00:00 AM EDT Never Smoker completed Never S moker eCW1 ([facility]) Smoking 12/25/2020 12:00:00 AM EDT Never Smoker completed Never S moker eCW1 ([facility]) Smoking 12/25/2020 12:00:00 AM EDT Never Smoker completed Never S moker eCW1 ([facility]) Smoking 12/03/2020 12:00:00 AM EDT Never Smoker completed Never S moker eCW1 ([facility]) Smoking 09/19/2020 12:00:00 AM EST Never Smoker completed Never S moker eCW1 ([facility]) Vital Signs ID Date Data Source UNK Name Value Range Interpretation Code Description Data Source(s) Body weight 142.0 [lb_av] 142.0 [lb_av] eCW1 ([facility]) Body weight 64.41 kg 64.41 kg eCW1 ([facility]) Body height 64 [in_i] 64 [in_i] eCW1 ([facility]) Body mass index (BMI) [Ratio] 24.374 kg/m2 24.3 74 kg/m2 eCW1 ([facility]) Systolic blood pressure 112 mm[Hg] 112 mm[Hg] e CW1 ([facility]) Diastolic blood pressure 64 mm[Hg] 64 mm[Hg] eCW1 ([facility]) Body weight 141 [lb_av] 141 [lb_av] eCW1 ([facility]) Body weight 63.96 kg 63.96 kg eCW1 ([facility]) Body height 64 [in_i] 64 [in_i] eCW1 ([facility]) Body mass index (BMI) [Ratio] 24.2 kg/m2 24.2 k g/m2 W1 ([facility]) Systolic blood pressure 112 mm[Hg] 112 mm[Hg] e CW1 ([facility]) Diastolic blood pressure 60 mm[Hg] 60 mm[Hg] eCW1 ([facility]) Body weight 139.4 [lb_av] 139.4 [lb_av] eCW1 ([facility]) Body weight 63.23 kg 63.23 kg eCW1 ([facility]) Body height 64 [in_i] 64 [in_i] eCW1 ([facility]) Body mass index (BMI) [Ratio] 23.928 kg/m2 23.9 28 kg/m2 W1 ([facility]) Systolic blood pressure 108 mm[Hg] 108 mm[Hg] e CW1 ([facility]) Diastolic blood pressure 66 mm[Hg] 66 mm[Hg] eCW1 ([facility]) Body weight 139 [lb_av] 139 [lb_av] eCW1 ([facility]) Body weight 63.05 kg 63.05 kg eCW1 ([facility]) Body height 64 [in_i] 64 [in_i] eCW1 ([facility]) Body mass index (BMI) [Ratio] 23.859 kg/m2 23.8 59 kg/m2 eCW1 ([facility]) Systolic blood pressure 102 mm[Hg] 102 mm[Hg] e CW1 ([facility]) Diastolic blood pressure 60 mm[Hg] 60 mm[Hg] eCW1 ([facility]) Body weight 136.2 [lb_av] 136.2 [lb_av] eCW1 ([facility]) Body height 64 [in_i] 64 [in_i] eCW1 ([facility]) Body mass index (BMI) [Ratio] 23.379 kg/m2 23.3 79 kg/m2 eCW1 ([facility]) Systolic blood pressure 100 mm[Hg] 100 mm[Hg] e CW1 ([facility]) Diastolic blood pressure 56 mm[Hg] 56 mm[Hg] eCW1 ([facility]) Body weight 134.2 [lb_av] 134.2 [lb_av] eCW1 ([facility]) Body weight 60.87 kg 60.87 kg eCW1 ([facility]) Body height 64 [in_i] 64 [in_i] eCW1 ([facility]) Body mass index (BMI) [Ratio] 23.035 kg/m2 23.0 35 kg/m2 eCW1 ([facility]) Systolic blood pressure 104 mm[Hg] 104 mm[Hg] e CW1 ([facility]) Diastolic blood pressure 60 mm[Hg] 60 mm[Hg] eCW1 ([facility]) Body weight 128 [lb_av] 128 [lb_av] eCW1 ([facility]) Body height 64 [in_i] 64 [in_i] eCW1 ([facility]) Body mass index (BMI) [Ratio] 21.971 kg/m2 21.9 71 kg/m2 eCW1 ([facility]) Systolic blood pressure 100 mm[Hg] 100 mm[Hg] e CW1 ([facility]) Diastolic blood pressure 54 mm[Hg] 54 mm[Hg] eCW1 ([facility]) Body weight 129.0 [lb_av] 129.0 [lb_av] eCW1 ([facility]) Body weight 58.51 kg 58.51 kg eCW1 ([facility]) Body height 64 [in_i] 64 [in_i] eCW1 ([facility]) Body mass index (BMI) [Ratio] 22.143 kg/m2 22.1 43 kg/m2 eCW1 ([facility]) Systolic blood pressure 104 mm[Hg] 104 mm[Hg] e CW1 ([facility]) Diastolic blood pressure 62 mm[Hg] 62 mm[Hg] eCW1 ([facility]) Body height 64 [in_i] 64 [in_i] eCW1 ([facility]) Body weight 127.8 [lb_av] 127.8 [lb_av] eCW1 ([facility]) Body mass index (BMI) [Ratio] 21.937 kg/m2 21.9 37 kg/m2 eCW1 ([facility]) Systolic blood pressure 102 mm[Hg] 102 mm[Hg] e CW1 ([facility]) Diastolic blood pressure 58 mm[Hg] 58 mm[Hg] eCW1 ([facility]) Body weight 123.8 [lb_av] 123.8 [lb_av] eCW1 ([facility]) Body height 64 [in_i] 64 [in_i] eCW1 ([facility]) Body mass index (BMI) [Ratio] 21.25 kg/m2 21.25 kg/m2 eCW1 ([facility]) Systolic blood pressure 106 mm[Hg] 106 mm[Hg] e CW1 ([facility]) Diastolic blood pressure 68 mm[Hg] 68 mm[Hg] eCW1 ([facility]) Patient Treatment Plan of Care Planned Activity Planned Date Details Description Data Source (s) valacyclovir 500 MG Oral Tablet [Valtrex] 06/21/2021 12:00:00 AM ED T eCW1 ([facility]) Cephalexin 500 MG Oral Capsule 12/25/2020 12:00:00 AM EDT eCW1 ([facility])
--- OUTSIDE RECORDS SUMMARY | 2021-07-01 22:26 | CCD ---
Author Author [facility] Organization [facility] Address Unknown Phone Unavailable Care Team Providers Care Corporate Scheduler Name Role Phone Thomas Collins Unavailable PROBLEMS Type Condition ICD9-CM Code [id number] Code Onset Dates Condition S tatus W/U Status Risk SNOMED Code Notes Problem Melanocytic nevi of left ear D22.22 Active confirme d 057537591 Problem Multiple benign nevi of neck D22.4 Active confirme d 54959035 Problem Melanocytic nevi of right ear D22.21 Active confirm ed 071052352 Problem Melanocytic nevi of face D22.30 Active confirmed 254542627 Problem Scar L90.5 Active confirmed 840459753 Problem Melanocytic nevi of trunk D22.5 Active confirmed 402851034 Problem History of nonmelanoma skin cancer Z85.828 Activ e confirmed 118351521 Problem Supervision of other normal Z34.80 Ac tive confirm 225552340 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 68710 01 Problem Melanocytic nevi of left lower limb, including hip D22.72 Active confirmed 721415677023392 Problem Melanocytic nevi of right lower limb, including hip D22.71 Active confirmed 652101241 Problem Melanocytic nevi of left upper limb, including shoulder D22.62 Active confirmed 110310799041454 Problem Melanocytic nevi of right upper limb, including shoulder D22.61 Active confirmed 142187133 ALLERGIES No Known Allergies ENCOUNTERS from 1984 to 2021-04-10 Encounter Location Date Provider Diagnosis [facility] [facility] [phone] [place] [address] Mar, Thomas Collins Encounter for superv ision of normal in multigravida in second trimester Z34.82 and 25 weeks gestation of Z3A.25 IMMUNIZATIONS Vaccine Route Administration Date Status TDAP 0.5mL (Boostrix) IM Intramuscular Sep 09, 2019 Administe red SOCIAL HISTORY Tobacco Use: Social History Observation Description Date Details (start date - stop date) Never Smoker Sex Assigned At : Social History Observation Description Sex Assigned At Unknown Education: Question Answer Notes Level of Education: Professional Schools/Masters/PhD Language: Question Answer Notes Languages spoken: Jamaican Domestic Violence: Question Answer Notes Status: No history of abuse Alcohol Screening: Question Answer Notes Did you have a drink containing alcohol in the past year? No Points 0 Interpretation Negative Tobacco Use: Question Answer Notes Are you a: never smoker REASON FOR REFERRAL No Information VITAL SIGNS Weight 136.2 lbs Mar, Height 64 in Mar, BMI 23.379 kg/m2 Mar, Blood pressure systolic 100 mm Hg Mar, Blood pressure diastolic 56 mm Hg Mar, MEDICATIONS Medication SIG (Take, Route, Frequency, Duration) [...] Notes Treatment Notes Treatm ent Clinical Notes Mar, Encounter for supervision of normal in multigravida in second trimester (ICD-10 - Z34.82) Mar, 25 weeks gestation of (ICD-10 - Z3A.25 ) PLAN OF TREATMENT Treatment Notes Test Name Order Date CBC - Complete Blood Count 2021-03-28 Type and Screen (D Rh Antibody Screen) 2021-03-28 Glucose Challenge Test 1 Hour 2021-03-28 CHLAMYDIA & GC DNA AMPLIFICAT 2021-03-28 Next Appt Details Provider Name:Aime Herring, 2021-04-30 0 9:00:00 AM, [address] [facility], , [place], [address], Insurance Providers Payer Name Payer Address Payer Phone Insured Name Patient Relati onship to Insured Coverage Start Date Coverage End Date 'S ADMINSTRATION [place] CARE [address] [address] [facility] [id number] PEGGY HERNANDEZ [facility] [employer] [address] [place] [address] SAMIA HERNANDEZ
--- OUTSIDE RECORDS SUMMARY | 2021-07-01 22:26 | CCD ---
Author Author [facility] Organization [facility] Address Unknown Phone Unavailable Care Team Providers Care Electrotyper Name Role Phone Xochilt Garrett Unavailable PROBLEMS Type Condition ICD9-CM Code [id number] Code Onset Dates Condition S tatus W/U Status Risk SNOMED Code Notes Problem Melanocytic nevi of left ear D22.22 Active confirme d 575298583 Problem Multiple benign nevi of neck D22.4 Active confirme d 72295702 Problem Melanocytic nevi of right ear D22.21 Active confirm ed 711024027 Problem Melanocytic nevi of face D22.30 Active confirmed 823415817 Problem Scar L90.5 Active confirmed 421502171 Problem Melanocytic nevi of trunk D22.5 Active confirmed 933786767 Problem History of nonmelanoma skin cancer Z85.828 Activ e confirmed 201902162 Problem Supervision of other normal Z34.80 Ac tive confirm 319478683 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 66079 01 Problem Melanocytic nevi of left lower limb, including hip D22.72 Active confirmed 949029097568128 Problem Melanocytic nevi of right lower limb, including hip D22.71 Active confirmed 027341405 Problem Melanocytic nevi of left upper limb, including shoulder D22.62 Active confirmed 882878628109457 Problem Melanocytic nevi of right upper limb, including shoulder D22.61 Active confirmed 584819105 ALLERGIES No Known Allergies ENCOUNTERS from 1984 to 2021-06-12 Encounter Location Date Provider Diagnosis [facility] [address] [place] [address] [place] [address] May, Xochilt Garrett 34 weeks gestation o f Z3A.34 ; Encounter for supervision of other normal in third trimester Z34.83 and Immunization due Z23 IMMUNIZATIONS Vaccine Route Administration Date Status TDAP [...] Schools/Masters/PhD Language: Question Answer Notes Languages spoken: Jordanian Domestic Violence: Question Answer Notes Status: No history of abuse Tobacco Use: Question Answer Notes Are you a: never smoker REASON FOR REFERRAL No Information VITAL SIGNS Weight 141 lbs May, Weight-kg 63.96 kg May, Height 64 in May, BMI 24.2 kg/m2 May, Blood pressure systolic 112 mm Hg May, Blood pressure diastolic 60 mm Hg May, MEDICATIONS Medication SIG (Take, Route, Frequency, Duration) Notes Start Da te End Date Status Vitamin 27-0.8 MG 1 tablet Orally Once a day Active Magnesium 300 MG 1 capsule with a meal Orally Once a day for 30 day(s ) Active Valtrex 500 MG 1 tablet Orally Once a day Active PROCEDURES from 1984 to 2021-06-12 Procedure Date Ordered Result Body Site Imm: Boostrix 0.5mL IM TDAP 2021-05-29 N/A RESULTS No Results REASON FOR VISIT 2 [...] Treatment Notes Treatm ent Clinical Notes May, 34 weeks gestation of (ICD-10 - Z3A.34 ) May, Encounter for supervision of other normal in third trimester (ICD-10 - Z34.83) May, Immunization due (ICD-10 - Z23) PLAN OF TREATMENT Next Appt Details Provider Name:Aime Herring, 2021-06-21 0 2:40:00 PM, [address] [place] [address], , [place], [address], Provider Name:Thomas Collins, 2021-06-26 02:45:00 PM, [address] [place] [address], , [place], [address], Provider Name:Thomas Collins, 2021-07-03 09:15:00 AM, [address] [place] [address], , [place], [address], Insurance Providers Payer Name Payer Address Payer Phone Insured Name Patient Relati onship to Insured Coverage Start Date Coverage End Date 'S ADMINSTRATION ([place]) NON VA CARE [address] [address] [facility] [address] PEGGY HERNA[facility]DEZ [facility] [address] [place] [address] SAMIA HERNANDEZ
[2021-07-01 22:51] VITALS: BP 129/58
[2021-07-01] MEDS ORDERED: OXYTOCIN INJ 10 UNITS/ML VIAL (J2590) IM PRN (23:20)
--- NOTE | 2021-07-01 23:49 | HPEPDOC ---
Obstetrical History & Physical General Date of Admission Jul 01, 2021 at 22:23 Primary Care Physician: ALONZO JERNIGAN CNM History of Present Illness Xochitl is a 36-year-old female who is a at 38.5 weeks gestation with an JENA of 07/10/21 based on her LMP. She initiated car ein her first trimester with WWBC. Her has been complicated by advanced maternal age. She presents to labor and delivery with complaints of painful contractions that started at 2114. She reports bloody show and active. She denies leaking of fluid. Chief Complaint: Active Labor Information Provided By: Patient Age: 36 : 2 Term: 1 Pre-term: 0 Abortions: 0 Livin Care Care: Good Care Dating Final EDC: Jul 10, 2021 Final EDC by: LMP EGA at Admission: 38.5 Antepartum Course Diagnos(e)s AMA GBS positive urine Height (inches): 64 Pre- weight (lbs.): 127 Admission Weight (lbs.): 143 Change in Weight (lbs.): 16 Past Medical History Past Obstetrical History : Past Obstetrical History: Primgravida Date of Delivery: Oct 08, 2019 Gestation: 38 Type of Delivery: Spontaneous Vaginal Del. Sex of Infant: Female (weighting 6 lbs 7 oz) ADMITTANCE ATTENDANT History: Abnormal Pap, Human papillomavirus(HPV), History of STD Past Medical History Surgical History: Other (LEEP 2013 and removal of tumor) Family History Significant Family History: Cancer (pancreatic cancer and melenoma), Diabetes Social History Social history She is an prosecuting attorney Marital Status: Family situation: Spouse/partner home Psychosocial History: No pertinent psych hx * Smoker: non-smoker Alcohol: Denies Drugs: denies Abuse Violence Screening Have you been hit/kicked/slapp: No Have you been sexually assault: No Allergies Coded Allergies: No Known Allergies (Unverified , 10/08/19) Medications Scheduled No.137/Iron/Folic Acd ( Vitamin Tablet) 1 Each Tablet, 1 TAB PO DAILY Scheduled PRN Acetaminophen (Acetaminophen) 500 Mg Tablet, 1,000 MG PO Q6HP PRN for PAIN LEVEL 6-10 Ibuprofen (Ibuprofen) 800 Mg Tablet, 800 MG PO Q8HP PRN for PAIN LEVEL 6-10 Physical Examination Physical Examination GENERAL: Alert and oriented times three. ABDOMEN: Gravid and non-tender to touch. FETUS: Is vertex (VTX) by sterile vaginal examination (SVE), fetus is vertex (VTX) by Eric. Respiratory: breathing through contractions. Regular rate between contractions. EXTREMITIES: No edema. No clonus. Varicose veins noted. Vital Signs/I&O Vital Signs Label Value Date Time Patient Temperature 98.2 degrees F 07/01/212250 Pulse 81 07/01/212250 Blood Pressure Assessment 129/58 (81) 07/01/212250 Source Automatic Cuff (NIBP) Laboratory Data [facility] Laboratory Tests 2 07/01/21 22:29: Serology Scanned Report Hepatitis B Testing Urine Culture: No Growth Pertinent Laboratoy Data Blood Type: O+ RBC Antibody Screen: Negative HIV: Negative Hepatitis B: Negative Hepatitis C: Negative Rapid Plasma Reagin: Nonreactive Rubella: Immune Chlamydia/Gonorrhea: Negative Group B Streptococcus: Positive Diag/Inter Therapy NIPT low risk normal male. Vaginal Examination Dilation: complete Effacement: 100% Station: +1 Presentation: Cephalic presentation Assessment Heart Rate (FHR): 140 Variability: Moderate Decelerations: Early, Variable (variable with pushing/bearing down) Tocometer Contractions: Yes Multi-drug resistant Organism: No history of MDRO Assessment/Plan Assessment IUP at 38.5 weeks GBS positive active labor Plan Admit to labor and delivery. Delivery is imminent. Anticipate vaginal delivery. Attempt a saline lock if time. Unable to start GBS prophylaxis due to imminent delivery. ALONZO JERNIGAN CNM Jul 01, 2021 23:49
[2021-07-01] MEDS ORDERED: ACETAMINOPHEN 500 MG TAB PO ONE (23:50)
[2021-07-02 00:12] VITALS: BP 124/62
--- NOTE | 2021-07-02 00:18 | DNPDOC ---
[facility] Delivery Note Delivery Note DATE OF DELIVERY: 07/01/2021 PREDELIVERY DIAGNOSIS: 38 5/7 weeks' gestation and labor. POST DELIVERY DIAGNOSIS: Delivered at 2248 PROCEDURE: Spontaneous vaginal delivery. EQUIPMENT SUPERINTENDENT: Alonzo Bose CNM and LANA Gruber ANESTHESIA: none. ESTIMATED BLOOD LOSS: 100 mL. FINDINGS: 6 pounds 2 ounces; 2770 grams male infant, Score 9/9, precipitous labor, advanced maternal age. DELIVERY SUMMARY: Xochitl is a 36-year-old 2 now para 2001 who was admitted to labor and delivery in active labor. She was fully upon arrival. She spontaneously ruptured at 2245 and pushed to a living male at 2248 in the OA position with restitution to LOT. Anterior shoulder was delivered with gentle downward traction and the corpus followed. The baby was placed [id number] active and crying. The cord was clamped after 10 minutes per patient's request, as it was still pulsating. The cord was clamped and cut by the FOB. A 3-vessel cord was noted. The placenta was delivered at 2327 via Dunn with intact membranes. Hemostasis was achieved with fundal massage. She requested no IV or IM Pitocin unless necessary. The cervix, vagina, and perineum was inspected and a perineal abrasion was noted that did not need repair. Mom and dad have not yet decided on a name for the . Counts of instruments and sponges are correct. Mom plans to breastfeed and breastfeed in her room. Both Mom and baby are in stable condition. ALONZO BOSE CNM Jul 02, 2021 00:18
[2021-07-02 01:16] VITALS: BP 106/53
[2021-07-02 01:56] LABS: HEMATOCRIT 34.4 % (36.0-47.0); MEAN CORPUSCULAR HEMOGLOBIN 33.5 pg (27.0-33.0); MEAN CORPUSCULAR HGB CONC 34.9 g/dl (32.0-36.5); MEAN CORPUSCULAR VOLUME 96.1 fl (80.0-96.0); PLATELET COUNT, AUTOMATED 144 10^3/uL (150-450); RED BLOOD COUNT 3.58 10^6/uL (4.00-5.40); WHITE BLOOD COUNT 15.7 10^3/uL (4.0-10.0)
[2021-07-02 05:58] VITALS: BP 90/50
[2021-07-02] MEDS ORDERED: DOCUSATE SODIUM 100MG CAPSULE PO PRN (08:10)
[2021-07-02] MEDS ORDERED: ACETAMINOPHEN 500 MG TAB PO PRN (08:10)
[2021-07-02] MEDS ORDERED: MOM 30ML SUSPENSION UDC PO PRN (08:10)
[2021-07-02] MEDS ORDERED: IBUPROFEN 800 MG TAB PO PRN (08:10)
[2021-07-02] MEDS ORDERED: MEASLES,MUMPS,RUBELLA VACCINE INJ (MMR-II) (90707) SC SCH (08:10)
[2021-07-02] MEDS ORDERED: ACETAMINOPHEN TAB 650MG DOSE (2X325MG) PO PRN (08:10)
[2021-07-02] MEDS ORDERED: ANUSOL HC CREAM 30GM TOP PRN (08:10)
[2021-07-02] MEDS ORDERED: METHYLERGONOVINE MALEATE 0.2 MG TAB PO PRN (08:10)
[2021-07-02] MEDS ORDERED: DIBUCAINE 1% OINTMENT 30GM TOP PRN (08:10)
[2021-07-02] MEDS ORDERED: IBUPROFEN 600MG TAB PO PRN (08:10)
[2021-07-02] MEDS ORDERED: RHOGAM 300 MCG (1500 IU) INJ (J2790) IM SCH (08:10)
[2021-07-02] MEDS: PRENATAL VITAMINS CHEWABLE TABLET PO SCH (09:35)
[2021-07-02 18:00] VITALS: BP 107/59
[2021-07-03 06:38] VITALS: BP 110/66
[2021-07-03] MEDS: PRENATAL VITAMINS CHEWABLE TABLET PO SCH (08:33)
--- NOTE | 2021-07-03 09:21 | IPN ---
PROGRESS NOTE DATE: 07/03/2021 SUBJECTIVE: This lady requested circumcision of her male . After discussing the risks and benefits of circumcision, the medical, the non-medical indications, the penile block and aftercare, expressed an understanding of penile block, aftercare and bleeding, signed the consent form, all questions were answered, a 20 minute discussion, we await clearance by the counter tender. cc: Say DE LA TORRE
== END 2021-07-03 16:50 | disposition home or self-care (01) | DRG 807 ==
LOC: M LDI 22:23 → M OBS 07-02 01:15
PROVIDERS: ADMIT Advanced Practice Midwife; ATTEND Advanced Practice Midwife
PROC: 10E0XZZ Delivery of Products of Conception, External Approach (ICD-10-PCS; principal; 2021-07-01)
DX: O99.824 Streptococcus B carrier state complicating childbirth (principal); Z37.0 Single live birth; Z3A.38 38 weeks gestation of pregnancy; O09.523 Supervision of elderly multigravida, third trimester

== ENCOUNTER → 2021-11-11 | Outpatient (CLI) | payer OTHER | LOC: M PLAIMG 10:25 | PROVIDERS: ATTEND Specialist | DX: D36.16 Benign neoplasm of peripheral nerves and autonomic nervous system of pelvis (principal); M85.68 Other cyst of bone, other site ==

== ENCOUNTER → 2022-05-07 | Outpatient (REF) | payer OTHER | LOC: M SFHCWAGY 18:02 | PROVIDERS: ATTEND Specialist | DX: Z12.4 Encounter for screening for malignant neoplasm of cervix (principal); R87.612 Low grade squamous intraepithelial lesion on cytologic smear of cervix (LGSIL) | CPT/HCPCS: 87624; G0123 ==

== ENCOUNTER → 2022-07-23 | Outpatient (REF) | payer OTHER | LOC: M SFHCDERM 09:14 | PROVIDERS: ATTEND Dermatology | DX: D22.39 Melanocytic nevi of other parts of face (principal) ==

== ENCOUNTER → 2022-08-07 | Outpatient (REF) | payer OTHER | LOC: M SFHCWAGY 09:56 | PROVIDERS: ATTEND Specialist | DX: N87.0 Mild cervical dysplasia (principal) ==

== ENCOUNTER → 2022-11-26 | Outpatient (REF) | payer OTHER | LOC: M SFHCDERM 14:13 | PROVIDERS: ATTEND Dermatology | DX: D22.62 Melanocytic nevi of left upper limb, including shoulder (principal) | CPT/HCPCS: 11104; 11105; 88305; G0463 ==

== ENCOUNTER → 2022-12-17 | Outpatient (CLI) | payer OTHER ==
[2022-12-17 13:01] LABS: FREE T4 0.9 NG/DL (0.89-1.76); THYROID STIMULATING HORMONE 1.002 uIU/ML (0.55-4.78)
== END ==
LOC: M LAB 11:41
PROVIDERS: ATTEND Dermatology
DX: Q87.89 Other specified congenital malformation syndromes, not elsewhere classified (principal)

== ENCOUNTER → 2023-02-13 | Outpatient (CLI) | payer OTHER | LOC: M RAD 07:18 | PROVIDERS: ATTEND Dermatology | DX: Q87.89 Other specified congenital malformation syndromes, not elsewhere classified (principal) ==

== ENCOUNTER → 2023-02-17 | Outpatient (CLI) | payer OTHER | LOC: M CARPUL 08:28 | PROVIDERS: ATTEND Dermatology | DX: Q87.89 Other specified congenital malformation syndromes, not elsewhere classified (principal) ==

== ENCOUNTER → 2023-04-01 | Outpatient (CLI) | payer OTHER ==
[2023-04-01 12:25] LABS: BASO # 0.1 10^3/uL (0.0-0.2); BASO % 0.9 % (0.0-1.0); EOS # 0.2 10^3/uL (0.0-0.5); EOS % 4.2 % (0.0-3.0); HEMATOCRIT 39.3 % (36.0-47.0); HEMOGLOBIN 13.1 g/dl (12.0-15.5); LYMPH # 2.2 10^3/uL (1.5-5.0); LYMPH % 38.8 % (24.0-44.0); MEAN CORPUSCULAR HEMOGLOBIN 33.1 pg (27.0-33.0); MEAN CORPUSCULAR HGB CONC 33.3 g/dl (32.0-36.5); MEAN CORPUSCULAR VOLUME 99.2 fl (80.0-96.0); MONO # 0.3 10^3/uL (0.0-0.8); MONO % 5.2 % (2.0-8.0); NEUTROPHILS # 2.9 10^3/uL (1.5-8.5); NEUTROPHILS % 50.7 % (36.0-66.0); PLATELET COUNT, AUTOMATED 186 10^3/uL (150-450); RED BLOOD COUNT 3.96 10^6/uL (4.00-5.40); WHITE BLOOD COUNT 5.8 10^3/uL (4.0-10.0)
[2023-04-01 12:28] LABS: APPEARANCE, URINE CLEAR (CLEAR); BACTERIA, URINE AUTO NEGATIVE (NEGATIVE); BILIRUBIN, URINE AUTO NEGATIVE (NEGATIVE); BLOOD, URINE BLOOD NEGATIVE (NEGATIVE); COLOR, URINE YELLOW (YELLOW); GLUCOSE, URINE (UA) AUTO NEGATIVE (NEGATIVE); KETONE, URINE AUTO NEGATIVE (NEGATIVE); LEUKOCYTE ESTERASE, URINE AUTO NEGATIVE (NEGATIVE); NITRITE, URINE AUTO NEGATIVE (NEGATIVE); PROTEIN, URINE AUTO NEGATIVE (NEGATIVE); RBC, URINE AUTO 0 /HPF (0-3); SPECIFIC GRAVITY URINE AUTO 1.004 (1.002-1.035); SQUAMOUS EPITHELIAL CELL UR AU 2 /HPF (0-6); UROBILINOGEN, URINE AUTO 0.2 mg/dL (0.0-2.0); WBC, URINE AUTO 1 /HPF (0-3)
[2023-04-01 12:54] LABS: HCG, SERUM QUANTITATIVE 4.1 MIU/ML (<4.2); LDH LACTATE DEHYDROGENASE 139 U/L (120-246)
[2023-04-01 12:55] LABS: ALBUMIN 3.9 G/DL (3.2-5.2); ALKALINE PHOSPHATASE 48 U/L (46-116); ALT/SGPT 26 U/L (7.0-40); AST/SGOT 19 U/L (<34); BILIRUBIN,TOTAL 0.6 MG/DL (0.3-1.2); BLOOD UREA NITROGEN 13 MG/DL (9-23); CALCIUM LEVEL 8.8 MG/DL (8.5-10.1); CARBON DIOXIDE LEVEL 29 MMOL/L (20-31); CHLORIDE LEVEL 105 MMOL/L (98-107); CREATININE FOR GFR 0.72 MG/DL (0.55-1.30); GLOMERULAR FILTRATION RATE > 60.0 (>60); GLUCOSE, FASTING 90 MG/DL (60-100); POTASSIUM SERUM 3.8 MMOL/L (3.5-5.1); SODIUM LEVEL 140 MMOL/L (136-145); TOTAL PROTEIN 6.4 G/DL (5.7-8.2)
[2023-04-01 13:39] LABS: ERYTHROCYTE SEDIMENTATION RATE 1 mm/hr (0-20)
== END ==
LOC: M WUC 09:09
PROVIDERS: ATTEND Dermatology
DX: R10.32 Left lower quadrant pain (principal)

== ENCOUNTER → 2023-04-21 | Outpatient (CLI) | payer OTHER | LOC: M RAD 15:07 | PROVIDERS: ATTEND Specialist | DX: D36.10 Benign neoplasm of peripheral nerves and autonomic nervous system, unspecified (principal) ==

== ENCOUNTER → 2023-05-06 | Outpatient (CLI) | payer OTHER ==
[~2023-05-06] MED LIST changes: +MAGN400T2 PO; +VALA1TAB5 PO
== END ==
LOC: M ONCR 08:53
PROVIDERS: ATTEND General Practice
DX: D36.16 Benign neoplasm of peripheral nerves and autonomic nervous system of pelvis (principal); R29.6 Repeated falls; Z71.2 Person consulting for explanation of examination or test findings; Z85.828 Personal history of other malignant neoplasm of skin

== ENCOUNTER 2023-06-18 12:55 | Outpatient (RCR) | payer OTHER | END 2023-07-07 | LOC: M ONCR 12:55 | PROVIDERS: ATTEND General Practice | DX: Z51.0 Encounter for antineoplastic radiation therapy (principal); D36.16 Benign neoplasm of peripheral nerves and autonomic nervous system of pelvis ==

== ENCOUNTER → 2023-07-03 | Outpatient (CLI) | payer SELFPAY | LOC: M PLAIMG 11:38 | PROVIDERS: ATTEND Physician Assistant | DX: S93.431A Sprain of tibiofibular ligament of right ankle, initial encounter (principal); Y93.9 Activity, unspecified; Y92.9 Unspecified place or not applicable ==

== ENCOUNTER → 2023-11-24 | Outpatient (REF) | payer OTHER | LOC: M SFHCWAGY 18:06 | PROVIDERS: ATTEND Specialist | DX: Z01.419 Encounter for gynecological examination (general) (routine) without abnormal findings (principal) | CPT/HCPCS: 87624; G0123 ==

== ENCOUNTER → 2023-11-24 | Outpatient (CLI) | payer OTHER ==
[2023-11-24 16:01] LABS: ESTRADIOL 66.9 PG/ML; FOLLICLE STIMULATING HORMONE 22.2 mIU/ML; FREE T4 1.16 NG/DL (0.89-1.76); THYROID STIMULATING HORMONE 0.629 uIU/ML (0.55-4.78)
== END ==
LOC: M LAB 14:08
PROVIDERS: ATTEND General Practice
DX: D36.16 Benign neoplasm of peripheral nerves and autonomic nervous system of pelvis (principal)

== ENCOUNTER → 2023-12-08 | Outpatient (CLI) | payer OTHER ==
[~2023-12-08] MED LIST changes: +PROHANCE 279.3MG/ML 5ML VIAL As Ordered ONE
== END ==
LOC: M RAD 15:48
PROVIDERS: ATTEND Internal Medicine
DX: Q85.03 Schwannomatosis (principal); M51.26 Other intervertebral disc displacement, lumbar region; M51.45 Schmorl's nodes, thoracolumbar region
CPT/HCPCS: 72148; A9576

== ENCOUNTER → 2023-12-08 | Outpatient (CLI) | payer OTHER ==
[~2023-12-08] MED LIST changes: -PROHANCE 279.3MG/ML 5ML VIAL As Ordered ONE
== END ==
LOC: M RAD 15:44
PROVIDERS: ATTEND General Practice
DX: Q85.03 Schwannomatosis (principal); N83.201 Unspecified ovarian cyst, right side; N83.202 Unspecified ovarian cyst, left side; M51.26 Other intervertebral disc displacement, lumbar region; M51.45 Schmorl's nodes, thoracolumbar region
CPT/HCPCS: 72148; 72197; A9576

== ENCOUNTER → 2023-12-24 | Outpatient (CLI) | payer OTHER | LOC: M ONCR 14:08 | PROVIDERS: ATTEND General Practice | DX: D36.17 Benign neoplasm of peripheral nerves and autonomic nervous system of trunk, unspecified (principal); E28.2 Polycystic ovarian syndrome; M21.371 Foot drop, right foot; Z71.2 Person consulting for explanation of examination or test findings; Z79.899 Other long term (current) drug therapy; Z92.3 Personal history of irradiation ==

== ENCOUNTER → 2024-06-16 | Outpatient (CLI) | payer OTHER ==
[2024-06-16 13:34] LABS: FOLLICLE STIMULATING HORMONE 6.4 mIU/ML; LUTEINIZING HORMONE 4.1 mIU/ML
== END ==
LOC: M LAB 10:52
PROVIDERS: ATTEND Specialist
DX: Z92.3 Personal history of irradiation (principal)

== ENCOUNTER → 2024-06-16 | Outpatient (CLI) | payer OTHER ==
[~2024-06-16] MED LIST changes: +PROHANCE 279.3MG/ML 5ML VIAL As Ordered ONE
== END ==
LOC: M RAD 10:46
PROVIDERS: ATTEND General Practice
DX: D36.16 Benign neoplasm of peripheral nerves and autonomic nervous system of pelvis (principal); Z97.5 Presence of (intrauterine) contraceptive device; N83.201 Unspecified ovarian cyst, right side; N83.202 Unspecified ovarian cyst, left side
CPT/HCPCS: 72197; A9576

== ENCOUNTER → 2024-06-23 | Outpatient (CLI) | payer OTHER ==
[~2024-06-23] MED LIST changes: -PROHANCE 279.3MG/ML 5ML VIAL As Ordered ONE
== END ==
LOC: M ONCR 09:27
PROVIDERS: ATTEND General Practice
DX: D36.16 Benign neoplasm of peripheral nerves and autonomic nervous system of pelvis (principal); M21.371 Foot drop, right foot; E28.2 Polycystic ovarian syndrome; Z98.890 Other specified postprocedural states; Z92.3 Personal history of irradiation; Z79.899 Other long term (current) drug therapy

== ENCOUNTER → 2024-10-14 | Outpatient (CLI) | payer OTHER | LOC: M WHC 10:40 | PROVIDERS: ATTEND Specialist | DX: N92.0 Excessive and frequent menstruation with regular cycle (principal); D25.1 Intramural leiomyoma of uterus; N83.201 Unspecified ovarian cyst, right side; N83.202 Unspecified ovarian cyst, left side ==

== ENCOUNTER → 2025-06-15 | Outpatient (CLI) | payer OTHER | LOC: M RAD 09:01 | PROVIDERS: ATTEND General Practice | DX: D36.16 Benign neoplasm of peripheral nerves and autonomic nervous system of pelvis (principal); N83.201 Unspecified ovarian cyst, right side; N83.202 Unspecified ovarian cyst, left side ==

== ENCOUNTER → 2025-06-23 | Outpatient (CLI) | payer OTHER | LOC: M ONCR 09:30 | PROVIDERS: ATTEND General Practice | DX: D36.16 Benign neoplasm of peripheral nerves and autonomic nervous system of pelvis (principal); Z79.899 Other long term (current) drug therapy; Z92.3 Personal history of irradiation ==